=== PATIENT | female | born 1945 | race Caucasian/White ===

== ENCOUNTER 2018-06-11 09:43 | Emergency (ER) | payer MEDICARE, OTHER ==
[~2018-06-11] VITALS: Ht 162.6 cm; Wt 69.0 kg
[~2018-06-11 09:43] MED LIST: ALEVE220 M1 PO; ALPRAZOLAM PO; ALPRAZOLAM1 MG PO; ASPIRIN EC81 M1 PO; AVALIDE 150-121 EACH PO; BRILINTA90 MG PO; COZAAR 50 MG TA50 M1 PO; CYCLOBENZAPRINE; FOLIC ACID PO; FOLIC ACID1 MG PO; HYDROCHLOROTH12.5 M2 PO; HYDROCHLOROTHIA25 M1 PO; IBUPROFEN 400400 M1 PO; KEPPRA 500 MG500 M1 PO; LEVOTHYROXIN0.112 M1 PO; METHOTREXATE 22.5 MG PO; METHOTREXATE PO; NORVASC2.5 MG PO; PERCOCET 5-3251 EACH PO; PREDNISONE 10 M10 M1 PO; PREDNISONE 10 M10 MG PO; PREDNISONE PO; RHEUMATREX2.5 MG; STOOL SOFTENER100 MG PO; SYNTHROID125 MCG PO; VERAPAMIL ER200 MG PO; VERELAN; ZOCOR; ZOCOR20 MG PO
[2018-06-11] MEDS ORDERED: XANAX 0.25 MG0.25 MG PO (10:04)
[2018-06-11 12:11] LABS: ABSOLUTE BASOPHILS 0.1 thou/uL (0.0-0.2); ABSOLUTE EOSINOPHILS 0.1 thou/uL (0.0-0.7); ABSOLUTE LYMPHOCYTES 1.8 thou/uL (0.8-5.3); ABSOLUTE MONOCYTES 0.7 thou/uL (0.0-1.2); ABSOLUTE NEUTROPHILS 4.8 thou/uL (1.6-8.1); BASOPHILS 0.8 %; EOSINOPHILS 1.4 %; HEMATOCRIT 40.9 % (37.0-47.0); HEMOGLOBIN 13.8 gm/dL (12.0-15.0); LYMPHOCYTES 23.7 %; MCH 30.7 pg (26.0-34.0); MCHC 33.7 g/dL (28.0-37.0); MCV 91.1 fL (80.0-100.0); MONOCYTES 9.6 %; MPV 7.7 fl. (7.2-11.1); NUCLEATED RBCS 0 /100WBC; PLATELET COUNT* 332 thou/uL (150-400); POLYS 64.5 %; RBC 4.49 mil/uL (4.20-5.00); RDW-CV 14.7 % (10.5-14.5); WBC 7.5 thou/uL (4.0-11.0)
[2018-06-11 12:17] LABS: ANION GAP 6 mmol/L (7-16); BUN 17 mg/dL (7-18); CALCIUM 8.7 mg/dL (8.5-10.1); CHLORIDE 101 mmol/L (98-107); CO2 31 mmol/L (21-32); CREATININE 0.6 mg/dL (0.6-1.3); GLUCOSE 100 mg/dL (70-99); POTASSIUM 4.5 mmol/L (3.5-5.1); SODIUM 138 mmol/L (136-145)
[2018-06-11 12:20] LABS: APTT 24.8 Seconds (25.0-31.3); PROTIME 10.5 Seconds (9.20-11.50)
[2018-06-11 12:27] LABS: ALBUMIN 3.5 g/dL (3.4-5.0); ALKALINE PHOSPHATASE 102 U/L (46-116); LIPASE 46 U/L (73-393); NT-PRO BRAIN NAT PEPTIDE 645 pg/mL (<300); SGOT 16 U/L (15-37); SGPT 34 U/L (30-65); TOTAL BILIRUBIN 0.4 mg/dL (<0.1-1.0); TOTAL PROTEIN 7.4 g/dL (6.4-8.2); TROPONIN-I LEVEL <0.06 ng/mL (<0.06)
[2018-06-11 13:42] VITALS: BP 122/62
--- NOTE | 2018-06-11 17:02 | EKG ---
[place] [address] ELECTROCARDIOGRAM REPORT Name: HUGH AVINA Room: [facility]#: [id number] Admission: 06/11/18 Attend Phys: Discharge: 06/11/18 Date of : 43 Report #: [id number] THIS REPORT FOR: //name// [facility] ED Test Date: 2018-06-11 Test Time: 09:55:30 Pat Name: HUGH AVINA Department: Room: Gender: F Archery Equipment Hay Sorter: ANTOINETTE : 1945 Requested By: Maricruz Reardon Order Number: [id number] MD: Jaya Levi Measurements Intervals [place] Rate: 62 P: 37 [place]: 171 QRS: 3 QRSD: 91 T: 195 QT: 377 QTc: 383 Interpretive Statements Sinus rhythm Nonspecific T abnormalities, lateral leads Compared to ECG 03/08/2018 08:51:50 Sinus bradycardia no longer present T-wave abnormality still present Electronically Signed On 06-11-2018 17:02:30 TAILMAN by Jaya Levi [email or web address] <ELECTRONICALLY SIGNED> By: Jaya Levi MD, [facility] 06/11/18 1702 0955 [id number] Jaya Levi MD, [facility] /EPI
== END 2018-06-11 13:44 | disposition home or self-care (01) ==
LOC: M.ERS 09:43
PROVIDERS: Personal Emergency Response Attendant
DX: R07.89 Other chest pain (principal); Z95.5 Presence of coronary angioplasty implant and graft

== ENCOUNTER 2018-06-19 06:53 | Inpatient (IN) | payer MEDICARE, OTHER ==
[~2018-06-19] VITALS: Ht 160 cm; Wt 71.7 kg
[~2018-06-19 06:53] MED LIST changes: +XANAX 0.25 MG0.25 MG PO
[2018-06-19 06:56] VITALS: BP 124/62
--- NOTE | 2018-06-19 07:19 | NUR ---
I HAVE ASSUMED CARE OF THE PATIENT. SHE FEELS OKAY AND VITALS ARE STABLE. WILL CONTINUE TO GIVE CARE.
[2018-06-19 07:24] LABS: ABSOLUTE BASOPHILS 0.1 thou/uL (0.0-0.2); ABSOLUTE EOSINOPHILS 0.1 thou/uL (0.0-0.7); ABSOLUTE LYMPHOCYTES 1.5 thou/uL (0.8-5.3); ABSOLUTE MONOCYTES 0.9 thou/uL (0.0-1.2); ABSOLUTE NEUTROPHILS 5.5 thou/uL (1.6-8.1); BASOPHILS 0.8 %; EOSINOPHILS 1.4 %; HEMATOCRIT 41.6 % (37.0-47.0); HEMOGLOBIN 13.7 gm/dL (12.0-15.0); LYMPHOCYTES 18.8 %; MCH 30.3 pg (26.0-34.0); MCV 91.8 fL (80.0-100.0); MONOCYTES 10.6 %; MPV 7.9 fl. (7.2-11.1); NUCLEATED RBCS 0 /100WBC; PLATELET COUNT* 345 thou/uL (150-400); POLYS 68.4 %; RBC 4.53 mil/uL (4.20-5.00); RDW-CV 14.4 % (10.5-14.5); WBC 8.1 thou/uL (4.0-11.0)
--- NOTE | 2018-06-19 07:28 | NUR ---
500ML OF LR HAS FINISHED INFUSING FROM THE FIELD.
[2018-06-19 07:35] LABS: ANION GAP 7 mmol/L (7-16); BUN 16 mg/dL (7-18); CALCIUM 9.4 mg/dL (8.5-10.1); CHLORIDE 101 mmol/L (98-107); CO2 31 mmol/L (21-32); CREATININE 0.8 mg/dL (0.6-1.3); GLUCOSE 116 mg/dL (70-99); POTASSIUM 3.3 mmol/L (3.5-5.1); SODIUM 139 mmol/L (136-145)
[2018-06-19 07:36] LABS: APTT 20.4 Seconds (25.0-31.3); PROTIME 10.6 Seconds (9.20-11.50)
[2018-06-19 07:45] LABS: ALBUMIN 3.7 g/dL (3.4-5.0); ALKALINE PHOSPHATASE 106 U/L (46-116); NT-PRO BRAIN NAT PEPTIDE 660 pg/mL (<300); SGOT 28 U/L (15-37); SGPT 46 U/L (30-65); TOTAL BILIRUBIN 0.4 mg/dL (<0.1-1.0); TOTAL PROTEIN 7.7 g/dL (6.4-8.2); TROPONIN-I LEVEL <0.06 ng/mL (<0.06)
[2018-06-19 09:07] LABS: URINE BILIRUBIN NEGATIVE (Negative); URINE BLOOD NEGATIVE (Negative); URINE CLARITY CLEAR; URINE COLOR YELLOW; URINE GLUCOSE-RANDOM NEGATIVE (Negative); URINE KETONES NEGATIVE (Negative); URINE NITRITE-REFLEX NEGATIVE (Negative); URINE PROTEIN 1+ (Negative); URINE UROBILINOGEN 0.2 E.U./dl (0.2-1.0)
[2018-06-19 09:14] LABS: URINE LEUKOCYTES-REFLEX 2+ (Negative)
[2018-06-19 09:15] LABS: BACTERIA-REFLEX 1-9 Few /HPF (None Seen); CASTS None Seen /LPF (None Seen); CRYSTALS None Seen /LPF (None Seen); MUCUS None Seen strn/LPF (None Seen); SQUAMOUS >10 Many /LPF (0-3); URINE RBC 0-2 Rare /HPF (0-2); URINE WBC-REFLEX 0-5 Rare /HPF (0-5)
[2018-06-19 15:31] VITALS: BP 147/91
--- NOTE | 2018-06-19 18:00 | NUR ---
PT ADMITTED FROM ED WITH CHEST PAIN, WEAKNESS AND PALPITATION. SHE CURRENTLY DENIES ANY OF THE C/O. LAST NIGHT PT REPORTS HAVING CHEST PAIN, PALPITATIONS AND SOA FOR ABOUT 2 HOURS WHILE SITTING ON COUCH WHICH RESOLVED ON OWN. THIS AM PT FELT WEAK AND FELT LIKE SHE COULD BARELY WALK. THIS TOO HAS RESOLVED. PT UP WITH SBA, STEADY GAIT. TELE SB, HRR 50'S. RESPIRATIONS EVEN AND UNLABORED AT REST, LUNGS CLEAR THROUGHOUT. SHAKE BACKBOARD NOTCHER EQUAL BILATERAL. PT ORIENTED TO ROOM, ABLE TO MAKE NEEDS KNOWN, CALL LIGHT IN REACH
--- NOTE | 2018-06-19 18:08 | EKG ---
[place] [address] ELECTROCARDIOGRAM REPORT Name: HUGH AVINA Room: [address] ADM IN M.R.#: [id number] Admission: 06/19/18 Attend Phys: Mary Sexton MD Discharge: Date of : 43 Report #: [id number] THIS REPORT FOR: //name// [facility] ED Test Date: 2018-06-19 Test Time: 06:57:29 Pat Name: HUGH AVINA Department: Room: [facility] Gender: F Field Operations Coordinator: ROSSANA : 1945 Requested By: Luis Armando Bernstein Order Number: [id number] MD: Jaya Levi Measurements Intervals [place] Rate: 55 P: 20 [place]: 162 QRS: 2 QRSD: 97 T: 182 QT: 430 QTc: 412 Interpretive Statements Sinus rhythm Nonspecific T abnormalities, lateral leads Compared to ECG 06/11/2018 09:55:30 No significant changes Electronically Signed On 06-19-2018 18:07:49 PRINCIPAL TECHNICAL WRITER by Jaya Levi [email or web address] <ELECTRONICALLY SIGNED> By: Jaya Levi MD, [facility] 06/19/18 1807 0657 Jaya Levi MD, [facility] /EPI
[2018-06-19 20:31] VITALS: BP 135/58
[2018-06-20] VITALS: BP 137/57
[2018-06-20 04:00] VITALS: BP 133/80
[2018-06-20 05:30] LABS: ANION GAP 7 mmol/L (7-16); BUN 13 mg/dL (7-18); CALCIUM 8.5 mg/dL (8.5-10.1); CHLORIDE 105 mmol/L (98-107); CHOLESTEROL 110 mg/dL (<200); CO2 26 mmol/L (21-32); CREATININE 0.6 mg/dL (0.6-1.3); GLUCOSE 105 mg/dL (70-99); HDL CHOLESTEROL 33 mg/dL (>40); LDL CHOLESTEROL 62 mg/dL (<100); POTASSIUM 3.5 mmol/L (3.5-5.1); SODIUM 138 mmol/L (136-145); TC:HDL 3.3 Ratio (Not establshd); TRIGLYCERIDE 77 mg/dL (<150); VLDL 15 mg/dL (<40)
[2018-06-20 05:35] LABS: SERUM ASSESSMENT Clear
[2018-06-20 08:00] VITALS: BP 134/45
--- NOTE | 2018-06-20 08:40 | NUR ---
PT IS ABLE TO COMMUNICATE HER NEEDS TO STAFF WITH ONLY VERY MINOR DIFFICULTY; SHE WEARS HEARING AIDS BUT IS VERY TUNUNAK WHEN SHE IS NOT WEARING THEM. SHE HAS DENIED THE NEED FOR PAIN MEDICATION UP TO THIS TIME. SHE HAS BEEN NPO SINCE MIDNIGHT FOR A POSSIBLE STRESS TEST LATER TODAY; SHE HAS DENIED ANY OCCURANCES OF CHEST PAIN OVERNIGHT.
[2018-06-20 12:23] VITALS: BP 155/60
[2018-06-20 13:42] VITALS: BP 155/60
--- NOTE | 2018-06-20 13:43 | NUR ---
Pt is A&O. Resides at home alone. Active and independent. Pt states that she eats out more than she cooks, but continues to clean and drive. No DME. No hx of HH or SNF. Pt is current at [facility] cardiac rehab. CM provided Pt with Advanced Directive info. Goal is home at dc and wants to resume cardiac rehab, CM will fax resumption orders. Following.
--- NOTE | 2018-06-20 14:27 | CARDNUC ---
[place] [address] CARDIAC NUCLEAR IMAGING REPORT Name: HUGH AVINA Room: [address] [facility]#: [id number] Admission: 06/19/18 Attend Phys: Mary Sexton MD Discharge: Date of : 43 Date of Service: 06/20/18 1427 Report #: [id number] THIS REPORT FOR: //name// APPROVED REPORT Imaging Protocol: Rest Tc-99m/Stress Tc-99m 1 day Study performed: 06/20/2018 10:58:00 Indication: Chest pain, Dyspnea, Palpitations Patient Location: In-Patient Room #: [facility] Stress Tech: Jessie Sharma Stress Nurse: Vane Jim RN NM Tech:SANDHYA Ventura Ht: 5 ft 3 in Wt: 158 lbs BSA: 1.75 m2 BMI: 27.98 Medical History Medical History: hyperlipidemia, hypertension, cad Medications: atorvastatin, enoxaparin, losartan, ticagrelor, amlodipine, asa 81, hctz Allergies: nkda Cardiac Risk Factors: age, hyperlipidemia, hypertension Previous Cardiac Procedures: pci Exercise History: Indeterminate Resting Data Rest SPECT myocardial perfusion imaging was performed in supine position 30 minutes following the intravenous injection of 12.0 mCi of Tc-99m Sestamibi. Time of rest injection: 1130 Date: 06/20/2018 Time of rest imagin The images were gated to evaluate regional wall motion and calculate left ventricular ejection fraction. Administration Route: IV Administration Site: Left AC Pharmacologic Stress Pharmacologic stress test was performed by injecting Regadenoson 0.4 mg IV push over 10-15 seconds immediately followed by the intravenous injection of 36.0 mCi of Tc-99m Sestamibi. Time of stress injection: 1320 Time of stress imagin Administration Route: [place] [address] CARDIAC NUCLEAR IMAGING REPORT Name: HUGH AVINA Room: [address] IN [facility].#: [id number] Admission: 06/19/18 Attend Phys: Mary Sexton MD Discharge: Date of : 43 Date of Service: 06/20/18 1427 Report #: [id number] Administration Site: Left AC Gated Stress SPECT was performed 40 minutes after stress injection. The images were gated to evaluate regional wall motion and calculate left ventricular ejection fraction. Stress only was performed in the Supine position. Stress Test Details Stress Test: Pharmacologic stress testing performed using 0.4 mg of regadenoson per 5 mL given IV over 10 seconds. Reason for pharmacologic stress test: physical limitation. HR Max Heart Rate (APMHR): 147 bpm Resting HR: 51 bpm Target HR (85% APMHR): 124 bpm Max HR Achieved: 81 bpm % of APMHR: 55 Recovery HR: 76 bpm HR response to stress: Normal HR response to stress BP Resting BP: 178/86 mmHg Max BP: 151/64 mmHg Recovery BP: 175/80 mmHg BP response to stress: Normal blood pressure response to stress. ECG Resting ECG: nsr Stress ECG: nsr ST Change: none Arrhythmia: none Recovery ECG: nsr Recovery ST Change: none Clinical Reason for Termination: Completed protocol Stress Symptoms: None Exercise duration: 0 min sec Exercise capacity: 1 METs Nurse Comments pt has weak right leg and cannot walk on treadmill Stress ECG Conclusion negative ecg for [place] [address] CARDIAC NUCLEAR IMAGING REPORT Name: HUGH AVINA Room: [address] [place] [facility]#: [id number] Admission: 06/19/18 Attend Phys: Mary Sexton MD Discharge: Date of : 43 Date of Service: 06/20/18 1427 Report #: [id number] Study: Good Artifact: No artifact Study Data At rest, the left ventricular ejection fraction was 70%.. Post stress, the left ventricular ejection was 74%.. Perfusion Review of rest data reveals normal perfusion, without perfusion defects.Imaging obtained following vasodilator stress demonstrate a similar, uniform uptake of tracer without defects. Prone imaging was normal. LVEDV is normal.No segental wall motion abnormality seen. Images were reviewed using [employer]. Wall Motion normal perfusion nuclear stress test Nuclear Conclusion ECG Findings: negative for ischemia Clinical Findings: negative for ischemia Nuclear Findings: negative for ischemia Exercise Capacity: not assessed Left Ventricular Function: normal Risk Study: low Negative perfusion nuclear stress test for ischemia or infarct. <Conclusion> negative ecg for ischemia <ELECTRONICALLY SIGNED> By: Barak Pizano MD, [facility] 06/20/18 1427 1427 1427 Barak Pizano MD, FACC /INF
[2018-06-20 15:40] VITALS: BP 148/54
--- NOTE | 2018-06-20 16:10 | NUR ---
ASSUMED CARE OF PT THIS AM ASSESSED AND DOCUMENTED. PT HAD A NEGATIVE STRESS TEST TODAY AND HAS BEEN D/C'D TO HOME. IV AND CARDIAC MONITER D/C'D. EDUCATION GIVEN RE FOLLOW-UPS, MEDICATIONS, AND DRS ORDERS. ALL BELONGINGS PACKED UP AND PT IS WAITING FOR SON TO ARRIVE.
[2018-06-20 19:08] LABS: GLYCOHEMOGLOBIN (HGB A1C) 6.1 % (4.8-5.6)
--- NOTE | 2018-06-21 10:17 | EKG ---
[place] [address] ELECTROCARDIOGRAM REPORT Name: HUGH AVINA Room: [address] DIS IN M.R.#: [id number] Admission: 06/19/18 Attend Phys: Mary Sexton MD Discharge: 06/20/18 Date of : 43 Report #: [id number] THIS REPORT FOR: //name// [facility] ED Test Date: 2018-06-19 Test Time: 15:05:53 Pat Name: HUGH AVINA Department: Room: [address] Gender: F Running Instructor: ROSSANA : 1945 Requested By: Luis Armando Bernstein Order Number: [id number] Deric NÚÑEZ: Jose Armando Campo Measurements Intervals [place] Rate: 51 P: 13 [place]: 165 QRS: 14 QRSD: 103 T: 184 QT: 451 QTc: 416 Interpretive Statements Sinus rhythm Abnormal T, consider ischemia, lateral leads Compared to ECG 06/19/2018 06:57:29 Possible ischemia now present T-wave abnormality still present Electronically Signed On 06-21-2018 10:17:40 AUTOMATIC SHIRRING MACHINE OPERATOR by Jose Armando Campo [email or web address] <ELECTRONICALLY SIGNED> By: Jose Armando Campo MD, FAC 06/21/18 1017 1505 1505 Jose Armando Campo MD, [facility] /EPI
== END 2018-06-20 16:36 | disposition home or self-care (01) | DRG 206 ==
LOC: M.ERS 06:53 → M.2W 09:37 → M.TBA-ER 09:37 → M.2W 15:41
PROVIDERS: Family Medicine; ADMIT Family Medicine
DX: M94.0 Chondrocostal junction syndrome [Tietze] (principal); F41.9 Anxiety disorder, unspecified; F32.9 Major depressive disorder, single episode, unspecified; M06.9 Rheumatoid arthritis, unspecified; I25.10 Atherosclerotic heart disease of native coronary artery without angina pectoris; E03.9 Hypothyroidism, unspecified; K59.00 Constipation, unspecified; N18.2 Chronic kidney disease, stage 2 (mild); Z60.2 Problems related to living alone; R00.1 Bradycardia, unspecified; I12.9 Hypertensive chronic kidney disease with stage 1 through stage 4 chronic kidney disease, or unspecified chronic kidney disease; Z95.5 Presence of coronary angioplasty implant and graft; E78.5 Hyperlipidemia, unspecified; Z82.49 Family history of ischemic heart disease and other diseases of the circulatory system; Z79.82 Long term (current) use of aspirin; Z79.899 Other long term (current) drug therapy

== ENCOUNTER → 2018-08-12 | Outpatient (CLI) | payer MEDICARE, OTHER ==
--- NOTE | 2018-08-12 13:37 | 2DMMODE ---
[place] [address] 2 D/M-MODE ECHOCARDIOGRAM Name: HUGH AVINA Room: [facility]#: [id number] Admission: 08/12/18 Attend Phys: Tarsha Colon Discharge: Date of : 43 Date of Service: 08/12/18 1337 Report #: [id number] THIS REPORT FOR: //name// APPROVED REPORT Study performed: 08/12/2018 10:59:00 EXAM: Comprehensive 2D, Doppler, and color-flow Echocardiogram Patient Location: Out-Patient BSA: 1.75 HR: 56 bpm BP: 142/82 mmHg Other Information Study Quality: Good Indications CAD Hypertension/HDD 2D Dimensions IVSd: 12.31 (7-11mm) LVOT Diam: 20.32 (18-24mm) LVDd: 43.68 mm PWd: 11.72 (7-11mm) Ascending Ao: 32.82 (22-36mm) LVDs: 23.83 (25-40mm) Aortic Root: 27.55 mm Volumes Left Atrial Volume (Systole) LA ESV Index: 15.00 mL/m2 Aortic Valve AoV Peak Indra.: 1.42 m/s AO Peak Gr.: 8.04 mmHg LVOT Max P.36 mmHg AO Mean Gr.: 4.44 mmHg LVOT Mean P.98 mmHg LVOT Max V: 1.04 m/s AO V2 VTI: 32.11 cm LVOT Mean V: 0.64 m/s JEFF (VTI): 2.46 cm2 LVOT V1 VTI: 24.41 cm Mitral Valve E/A Ratio: 0.74 MV Decel. Time: 300.43 ms MV E Max Indra.: 0.57 m/s MV PHT: 87.13 [place] [address] 2 D/M-MODE ECHOCARDIOGRAM Name: HUGH AVINA Room: [facility]#: [id number] Admission: 08/12/18 Attend Phys: Tarsha Colon Discharge: Date of : 43 Date of Service: 08/12/18 1337 Report #: [id number] MVA (PHT): 2.53 cm2 TDI E/Lateral E': 6.33 E/Medial E': 6.33 Medial E' Indra.: 0.09 m/s Lateral E' Indra.: 0.09 m/s Pulmonary Valve PV Peak Indra.: 0.86 m/s PV Peak Gr.: 2.95 mmHg Tricuspid Valve RAP Estimate: 5.00 mmHg TR Peak Gr.: 14.36 mmHg RVSP: 19.36 mmHg PA Pressure: 19.36 mmHg Left Ventricle The left ventricle is normal size. There is normal LV segmental wall motion. Mild concentric left ventricular hypertrophy. Left ventricular systolic function is normal. The left ventricular ejection fraction is within the normal range. LVEF is 55-60%. Grade I - abnormal relaxation pattern. Right Ventricle The right ventricle is normal size. The right ventricular systolic function is normal. Atria The left atrium size is normal. The right atrium size is normal. Aortic Valve The aortic valve is normal in structure. No aortic regurgitation is present. There is no aortic valvular stenosis. Mitral Valve The mitral valve is normal in structure. There is no mitral valve regurgitation noted. No evidence of mitral valve stenosis. Tricuspid Valve The tricuspid valve is normal in structure. Mild tricuspid regurgitation. Pulmonic Valve The pulmonary valve is normal in structure. There is no pulmonic [place] [address] 2 D/M-MODE ECHOCARDIOGRAM Name: HUGH AVINA Room: [facility]#: [id number] Admission: 08/12/18 Attend Phys: Tarsha Colon Discharge: Date of : 43 Date of Service: 08/12/18 1337 Report #: [id number] Great Vessels The aortic root is normal in size. IVC is normal in size and collapses >50% with inspiration. Pericardium There is no pericardial effusion. <Conclusion> LVEF is 55-60%. Mild concentric left ventricular hypertrophy. <ELECTRONICALLY SIGNED> By: Taz Braun MD, FACC 08/12/18 133 36 36 Taz Braun MD, FAC /INF
== END ==
LOC: M.CRD 10:49
DX: I51.7 Cardiomegaly (principal); I25.10 Atherosclerotic heart disease of native coronary artery without angina pectoris; I10 Essential (primary) hypertension; I65.23 Occlusion and stenosis of bilateral carotid arteries

== ENCOUNTER 2018-10-26 16:51 | Emergency (ER) | payer MEDICARE, OTHER ==
[~2018-10-26] VITALS: Ht 162.6 cm; Wt 75.3 kg
[2018-10-26] MEDS ORDERED: CYCLOBENZAPRINE5 MG PO (18:54)
[2018-10-26] MEDS ORDERED: NORCO 5-325 TA1 EACH PO (18:54)
[2018-10-26] MEDS ORDERED: PREDNISONE50 MG PO (18:54)
[2018-10-26 19:16] VITALS: BP 159/58
[2018-10-26] MEDS ORDERED: ZOFRAN ODT4 MG DISSOLVE (19:25)
== END 2018-10-26 19:19 | disposition home or self-care (01) ==
LOC: M.ERS 16:51
DX: S39.011A Strain of muscle, fascia and tendon of abdomen, initial encounter (principal); I10 Essential (primary) hypertension; F41.9 Anxiety disorder, unspecified; F32.9 Major depressive disorder, single episode, unspecified; M06.9 Rheumatoid arthritis, unspecified; Z90.89 Acquired absence of other organs; Z95.5 Presence of coronary angioplasty implant and graft; X50.0XXA Overexertion from strenuous movement or load, initial encounter; Y92.89 Other specified places as the place of occurrence of the external cause; Y93.89 Activity, other specified; Y99.8 Other external cause status

== ENCOUNTER → 2019-02-26 | Outpatient (CLI) | payer MEDICARE, OTHER ==
[~2019-02-26] MED LIST changes: +CYCLOBENZAPRINE5 MG PO; +NORCO 5-325 TA1 EACH PO; +PREDNISONE50 MG PO; +ZOFRAN ODT4 MG DISSOLVE
--- NOTE | 2019-02-26 16:46 | CARDNUC ---
[place] [address] CARDIAC NUCLEAR IMAGING REPORT Name: HUGH AVINA Room: [facility]#: [id number] Admission: 02/26/19 Attend Phys: Tarsha Colon Discharge: Date of : 43 Date of Service: 02/26/19 1646 Report #: [id number] THIS REPORT FOR: //name// APPROVED REPORT Study performed: 02/26/2019 10:01:20 Exam: Nuclear Stress Test Indication: Dyspnea, CAD s/p PCI. Patient Location: Out-Patient Stress Tech: Patricia Piña Stress Nurse: Raquel Courtney R.N. Ht: 5 ft 4 in Wt: 161 lbs BSA: 1.78 m2 BMI: 27.63 Medical History Medical History: Angina, CAD s/p stent, Fatigue, HTN, Hyperlipidemia, SOB. Medications: Losartan, Simvastatin, ASA 81 MG, Brilinta, Amlodipine, HCTZ. Allergies: Codeine. Cardiac Risk Factors: Age, FHX of CAD, HTN, Hyperlipidemia, SOB. Previous Cardiac Procedures: PCI Pretest Chest Pain Characteristics: No chest pain Exercise History: Indeterminate Physical Disabilities: Hips Meds Held (24 hrs): None Stress Test Details Stress Test: Pharmacologic stress was paired with low level exercise. Reason for pharmacologic stress test: Hip problems.. HR Resting HR: 55 bpm Max Heart Rate (APMHR): 146 bpm Max HR Achieved: 95 bpm Target HR (85% APMHR): 124 bpm % of APMHR: 65 Recovery HR: 68 bpm BP Resting BP: 149/73 mmHg Max BP: 84/[place] [address] CARDIAC NUCLEAR IMAGING REPORT Name: HUGH AVINA Room: [facility]#: [id number] Admission: 02/26/19 Attend Phys: Tarsha Colon Discharge: Date of : 43 Date of Service: 02/26/19 1646 Report #: [id number] ECG Resting ECG: Sinus Rhythm Stress ECG: Sinus Rhythm ST Change: None Arrhythmia: None Recovery ECG: Sinus Rhythm Recovery ST Change: None Recovery Arrhythmia: None Clinical Reason for Termination: Completed protocol Stress Symptoms: Dyspnea, Weakness, Fatigue, Lightheaded. Exercise duration: 4 min 00 sec Exercise capacity: 2.30 METs The patient tolerated Lexiscan infusion without significant cardiac symptoms. Nurse Comments A 73 year old female presented with recent c/o dyspnea and s/p PCI. Patient tolerated walking Lexiscan. Recovery unremarkable with PO caffeine, effective. Patient was escorted by staff to Nuclear Medicine for images. Patient was stable with no complaints at that time. Stress ECG Conclusion Baseline 12-lead EKG shows sinus rhythm with some minimal horizontal ST segment depression isolated to lead 3. EKGs obtained during and post Lexiscan infusion showed sinus rhythm with no significant ST changes when compared to baseline. There were no stress-induced arrhythmias. NM EXAM: Myocardial Perfusion REST/STRESS Resting Data Rest SPECT myocardial perfusion imaging was performed in supine position 30 minutes following the intravenous injection of 11.4 mCi of Tc-99m Sestamibi. Time of rest injection: 08:00 The images were gated to evaluate regional wall motion and calculate left ventricular ejection fraction. Administration Route: IV Administration Site: Right AC Pharmacologic Stress Pharmacologic stress test was performed by injecting Regadenoson 0.4 mg IV push followed by the intravenous injection of 34.9 [place] [address] CARDIAC NUCLEAR IMAGING REPORT Name: HUGH AVINA Room: [facility]#: [id number] Admission: 02/26/19 Attend Phys: Tarsha Colon Discharge: Date of : 43 Date of Service: 02/26/19 1646 Report #: [id number] Tc-99m Sestamibi. Time of stress injection: 10:00 Administration Route: IV Administration Site: Right AC Heart Rate at time of stress injection: 76 bpm. Gated Stress SPECT was performed 45 minutes after stress injection. The images were gated to evaluate regional wall motion and calculate left ventricular ejection fraction. Prone imaging was performed. Study Quality Study: Good Artifact: No artifact Study Data At rest, the left ventricular ejection fraction was 68%.. Post stress, the left ventricular ejection was 63%.. TID = 1.00. Perfusion Normal left ventricular perfusion. Wall Motion Normal left ventricular wall motion. Nuclear Conclusion ECG Findings: negative for ischemia Clinical Findings: negative for ischemia Nuclear Findings: negative for ischemia Exercise Capacity: not assessed Left Ventricular Function: normal Risk Study: low Myocardial perfusion images show no defect to suggest infarct or ischemia. Left ventricular systolic function appears normal on gated studies. This is a low risk study. <Conclusion> Baseline 12-lead EKG shows sinus rhythm with some minimal horizontal ST segment depression isolated to lead 3. EKGs obtained during and post Lexiscan infusion showed sinus rhythm with [place] [address] CARDIAC NUCLEAR IMAGING REPORT Name: HUGH AVINA Room: [facility]#: [id number] Admission: 02/26/19 Attend Phys: Tarsha Colon Discharge: Date of : 43 Date of Service: 02/26/191645 Report #: [id number] changes when compared to baseline. There were no stress-induced arrhythmias. <ELECTRONICALLY SIGNED> By: Jaya Levi MD, [facility] 02/26/191645 45 1646 Jaya Levi MD, FACC /INF
== END ==
LOC: M.NUC 09-03 15:22
DX: I25.10 Atherosclerotic heart disease of native coronary artery without angina pectoris (principal); E78.00 Pure hypercholesterolemia, unspecified; E78.5 Hyperlipidemia, unspecified; I10 Essential (primary) hypertension; Z95.5 Presence of coronary angioplasty implant and graft; Z79.899 Other long term (current) drug therapy

== ENCOUNTER → 2020-09-17 | Outpatient (CLI) | payer MEDICARE, OTHER ==
--- NOTE | 2020-09-17 17:34 | CARDNUC ---
[place] [address] CARDIAC NUCLEAR IMAGING REPORT Name: HUGH AVINA Room: [facility]#: [id number] Admission: 09/17/20 Attend Phys: Tarsha Colon Discharge: Date of : 43 Date of Service: 09/17/20 1734 Report #: [id number] THIS REPORT FOR: cc: Eben Escalante Bradley L. DO Liston, Michael J. MD [facility] ~ APPROVED REPORT Study performed: 09/17/2020 11:27:03 Exam: Nuclear Stress Test Indication: Dyspnea Patient Location: Out-Patient Stress Tech: Patricia Piña Stress Nurse: Vane Jim RN Ht: 5 ft 4 in Wt: 161 lbs BSA: 1.78 m2 BMI: 27.63 Medical History Medical History: CAD s/p stent, HTN, Hyperlipidemia Medications: amlodipine, asa-81, hctz, losartan, simvastatin Allergies: codeine Cardiac Risk Factors: Age, FHX of CAD, HTN, Hyperlipidemia Previous Cardiac Procedures: PCI Exercise History: Indeterminate Stress Test Details Stress Test: Exercise stress testing was performed using a Travis protocol. HR Resting HR: 63 bpm Max Heart Rate (APMHR): 144 bpm Max HR Achieved: 129 bpm Target HR (85% APMHR): 122 bpm % of APMHR: 89 Recovery HR: 55 bpm BP Resting BP: 148/77 mmHg Max BP: 209/83 mmHg ECG Resting ECG: Sinus Rhythm Stress ECG: [place] [address] CARDIAC NUCLEAR IMAGING REPORT Name: HUGH AVINA Room: [facility]#: [id number] Admission: 09/17/20 Attend Phys: Tarsha Colon Discharge: Date of : 43 Date of Service: 09/17/20 1734 Report #: [id number] Change: None Arrhythmia: None Recovery ECG: Sinus Rhythm Recovery ST Change: None Recovery Arrhythmia: None Clinical Reason for Termination: Dyspnea Exercise duration: 4 min 21 sec Exercise capacity: 6.24 METs Functional Aerobic Impairment 90% The patient exhibited limited exercise tolerance on the standard Travis protocol only exercising 4 minutes and 21 seconds. She did achieve 90% of her age-predicted maximum heart rate. The patient did noted dyspnea but no chest pain. Stress ECG Conclusion The baseline twelve-lead EKG shows sinus rhythm with very subtle ST segment depression in the inferolateral leads that does not change with exercise stress. There were no stress-induced EKG changes. There were no stress-induced arrhythmias. NM EXAM: Myocardial Perfusion REST/STRESS Resting Data Rest SPECT myocardial perfusion imaging was performed in supine position 30 minutes following the intravenous injection of 10.4 mCi of Tc-99m Sestamibi. Time of rest injection: 10:00 The images were gated to evaluate regional wall motion and calculate left ventricular ejection fraction. Administration Route: IV Administration Site: Right AC Exercise Stress At peak stress, the patient was injected intravenously with 29.5mCi of Tc-99m Sestamibi. Time of stress injection: 11:35 Administration Route: IV Administration Site: Right AC Heart Rate at time of stress injection: 129 bpm. Patient continued to exercise for 1 minute(s). Gated Stress SPECT was performed 30 minutes after stress injection. The images were gated to evaluate regional wall motion and calculate left [place] [address] CARDIAC NUCLEAR IMAGING REPORT Name: HUGH AVINA Room: [facility]#: [id number] Admission: 09/17/20 Attend Phys: Tarsha Colon Discharge: Date of : 43 Date of Service: 09/17/20 1734 Report #: [id number] Prone imaging was performed. Study Quality Study: Good Artifact: Mild Breast artifact Study Data At rest, the left ventricular ejection fraction was 63%.. Post stress, the left ventricular ejection was 69%.. TID = 0.97. Perfusion Perfusion images show very mild photopenia in the mid anterior wall consistent with breast attenuation artifact. There were no significant fixed or reversible defects identified. Wall Motion Normal left ventricular wall motion. Nuclear Conclusion ECG Findings: negative for ischemia Clinical Findings: negative for ischemia Nuclear Findings: negative for ischemia Exercise Capacity: abnormal Left Ventricular Function: normal Risk Study: low Perfusion images show no defect to suggest infarct or ischemia. Global LV systolic function is normal. This is not a high risk study. The patient did exhibit limited exercise tolerance. <Conclusion> The baseline twelve-lead EKG shows sinus rhythm with very subtle ST segment depression in the inferolateral leads that does not change with exercise stress. There were no stress-induced EKG changes. There were no stress-induced arrhythmias. <ELECTRONICALLY SIGNED> By: Jaya Levi MD, FACC 09/17/20 1734 1734 1734 Jaya Levi MD, FACC /INF
== END ==
LOC: M.NUC 08-27 09:39 → M.CRD 09-10 08:00 → M.NUC 09-10 08:00 → M.CRD 09-10 08:30 → M.NUC 08:00 → M.CRD 09:00 → M.NUC 09:27
PROVIDERS: ATTEND Internal Medicine
DX: I25.119 Atherosclerotic heart disease of native coronary artery with unspecified angina pectoris (principal); Z95.5 Presence of coronary angioplasty implant and graft

== ENCOUNTER 2021-05-20 09:19 | Emergency (ER) | payer MEDICARE, OTHER ==
[~2021-05-20] VITALS: Ht 157.5 cm; Wt 81.7 kg
[2021-05-20] MEDS ORDERED: LEVO-T100 MCG PO (09:48)
[2021-05-20 10:58] VITALS: BP 164/64
== END 2021-05-20 11:00 | disposition home or self-care (01) ==
LOC: M.ERS 09:19
DX: S00.93XA Contusion of unspecified part of head, initial encounter (principal); T14.8XXA Other injury of unspecified body region, initial encounter; I10 Essential (primary) hypertension; F41.9 Anxiety disorder, unspecified; F32.9 Major depressive disorder, single episode, unspecified; Z90.89 Acquired absence of other organs; Z79.899 Other long term (current) drug therapy; W06.XXXA Fall from bed, initial encounter; Y93.89 Activity, other specified; Y92.89 Other specified places as the place of occurrence of the external cause; Y99.8 Other external cause status